=== PATIENT | male | born 1960 | race Caucasian/White ===

== ENCOUNTER → 2020-02-08 | Outpatient (CLI) | payer BC, SELFPAY | END | disposition home or self-care (01) | PROVIDERS: PCP Family Medicine; Visit Provider Family Medicine Hospice and Palliative Medicine | DX: Z11.59 Encounter for screening for other viral diseases (principal) | CPT/HCPCS: 87635; 94799; U0003 ==

== ENCOUNTER → 2020-03-29 10:50 | Outpatient (CLI) | payer BC, SELFPAY ==
[2020-03-29 12:59] LABS: PSA,Total - Annual Screen 0.29 ng/mL (0.00-4.00)
== END ==
PROVIDERS: PCP Family Medicine; Visit Provider Family Medicine
DX: Z12.5 Encounter for screening for malignant neoplasm of prostate (principal)
CPT/HCPCS: 36415; 84153; G0103

== ENCOUNTER → 2022-07-03 | Outpatient (CLI) | payer OTHER, SELFPAY ==
[2022-07-03 12:41] LABS: AST(SGOT) 31 U/L (15-37); Alanine Aminotransfer ALT/SGPT 62 U/L (16-61); Albumin, Serum 3.9 g/dL (3.2-5.0); Alkaline Phosphatase 59 U/L (45-117); Anion Gap 6 (5-15); BUN 14 mg/dL (7-18); BUN/Creat Ratio 16.1 RATIO (10-20); Calcium,Total 9.5 mg/dL (8.5-10.1); Chloride 98 mmol/L (98-107); Cholesterol 147 mg/dL (200); Creatinine, Serum 0.87 mg/dL (0.70-1.30); EST Glomerular Filtration Rate 94 mL/min (>60); Est Glom Filt Rate - Afr Amer 114 mL/min (>60); Glucose 106 mg/dL (74-106); High Density Lipoprotein 51 mg/dL; PSA,Total - Annual Screen 0.36 ng/mL (0.00-4.00); Potassium 3.8 mmol/L (3.5-5.1); Protein, Total 7.9 g/dL (6.4-8.2); Sodium Level 136 mmol/L (136-145); Triglycerides 145 mg/dL; Very Low Density Lipoprotein 29 mg/dL (5-40)
[2022-07-03 12:44] LABS: Absolute Lymphocyte Count 1.88 X10^3/uL (0.83-4.51); Absolute Neutrophil Count 3.1 X10^3/uL (2.0-7.7); Basophil# 0.05 X10^3/uL; Basophil% 0.9 % (0-1); Eosinophil# 0.11 X10^3/uL; Hemoglobin 16.8 g/dL (13.0-16.5); Lymphocyte # 1.88 X10^3/ul (0.83-4.51); Lymphocyte % 33.5 % (19-41); Mean Corp Hgb Conc 36.5 g/dL (32-36); Mean Corpuscular Volume 93.1 fL (80-94); Mean Platelet Vol. 10.8 fl (6.2-12.0); Monocyte# 0.51 X10^3/uL; Monocyte% 9.1 % (0-10); NRBC Flagged by Analyzer 0 % (0-5); Neutrophil # 3.06 X10^3/uL (2.7-7.7); Neutrophil % 54.3 % (47-70); Platelet Count 203 K/mm3 (150-450); RBC Distribution Width SD 41.3 fl (35.1-43.9); Red Blood Count 4.94 M/mm3 (4.6-6.2); White Blood Count 5.6 K/mm3 (4.4-11.0)
[2022-07-03 14:53] LABS: Hemoglobin A1c 5.8 % (3.8-5.6)
== END | disposition home or self-care (01) ==
PROVIDERS: PCP Family Medicine; Visit Provider Family Medicine
DX: Z00.00 Encounter for general adult medical examination without abnormal findings (principal); Z12.5 Encounter for screening for malignant neoplasm of prostate
CPT/HCPCS: 36415; 80053; 80061; 83036; 84153; 85025; G0103

== ENCOUNTER 2022-09-09 06:57 | Day surgery (SDC) | payer OTHER, SELFPAY ==
[2022-09-09] VITALS (9 sets, daily range): BP systolic 132–151; BP diastolic 59–81; PULSE 59–71; RESP 16; TEMP 36.1–36.3; O2SAT 94–97; BMI 26.4
[2022-09-09] MEDS: Lactated Ringers 1,000 ML 15 ML IV ×3 (07:32→11:43)
--- NOTE | 2022-09-09 08:19 | HP.PCM_ITS ---
History and Physical Date of Admission: 09/09/22 Intake Vital Signs ? 08/22/2312:52 Height 5 ft 11 in Weight: 191 lb 2 oz BMI 26.6 BP 150/81 H Blood Pressure Location Lt brachial Position Sitting Respiration 16 Pulse 68 Pulse SourceB Monitor Temp 97.3 F L Temp Source Temporal Pulse Oximetry (%) 98 Oxygen Delivery Method room air Intake Visit Reasons:?LEFT INGUINAL HERNIA Chief Complaint: Bilateral inguinal hernias Relief Master Required: No Is patient in pain?: No Allergies Sulfa (Sulfonamide Antibiotics) Allergy (Intermediate, Verified 08/22/22 13:53) PT UNSURE OF REACTION Medications aspirin 81 mg chewable tablet 81 mg PO DAILY 07/30/22 [History Confirmed 08/22/22] atenolol 50 mg-chlorthalidone 25 mg tablet 1 tab PO DAILY 07/30/22 [History Confirmed 08/22/22] coenzyme Q10 75 mg capsule (Ultra CoQ10) 75 mg PO DAILY 07/30/22 [History Confirmed 08/22/22] docusate sodium 100 mg tablet (Stool Softener) 100 mg PO DAILY 07/30/22 [History Confirmed 08/22/22] multivitamin 1 tab PO DAILY 07/30/22 [History Confirmed 08/22/22] omega 9-keh-cop-fish oil 300 mg-1,000 mg capsule (Fish Oil) 1 cap PO DAILY 07/30/22 [History Confirmed 08/22/22] psyllium husk 0.52 gram capsule (Natural Fiber Laxative) 0.52 g PO DAILY 07/30/22 [History Confirmed 08/22/22] simvastatin 40 mg tablet (Zocor) 40 mg PO DAILY 07/30/22 [History Confirmed 08/22/22] tamsulosin 0.4 mg capsule (Flomax) 0.4 mg PO QHS 2 months #60 caps 07/30/22 [Rx Confirmed 08/22/22] PFSH Family History? Brother Diabetes Heart disease HypertensionFather Hypertension CVA (cerebral vascular accident)Mother Hypertension HPI HPI HPI: Patient was seen by my partner and he discussed left inguinal hernia repair with him but then he needed to take Aleve and the patient would like surgery sooner.? Patient has been complaining of left inguinal hernia pain that has been there for a while.? Patient says that he is not having any pain or discomfort on the right but that Dr. Maurice was able to palpate an inguinal hernia on the right. ROS General General: No weight change, appetite, fatigue, colon cancer, breast cancer or weakness HEENT HEENT: No difficulty swallowing, eye injury, eye surgery, swollen glands or hoarseness Endo Endocrine: No thyroid disease, diabetes mellitus, thyroid cancer, Hair loss, heat intolerance or cold intolerance Skin Skin: No rash or changing moles Musc Musculoskeletal: Yes arthritis; No back problems, rheumatoid arthritis, gout or joint pain Cardio Cardiovascular: Yes high blood pressure; No murmur, pacemaker, heart disease, atrial fibrillation, heart attack, heart stent, palpitations, shortness of breat with exertion or chest pain Psych Psychiatric: No depression, anxiety or hearing voices Resp Respiratory: No shortness of breath, No sleep apnea, No cough, No COPD, No asthma, No emphysema and No wheezing Gastro Gastrointestinal: No abdominal pain, No nausea or vomiting, No diarrhea, No constipation, No blood in stool, No acid reflux, Yes hemorrhoids, No ulcers, No gallbladder problem and No black,tarry stools José Hematologic: No blood thinners, No blood disorders, No bleeding, No anemia and No blood clots Neuro Neurologic: No system reviewed and no additional complaints, except as documented, No as per HPI, No abnormal gait, No abnormal hearing, No abnormal movements, No abnormal speech, No behavioral changes, No burning sensations, No confusion, No convulsions, No disequilibrium, No dizziness, No localized weakness, No frequent falls, No headache(s), No lack of coordination, No loss of vision, No memory loss, No numbness, No other visual disturbances, No radicular pain, No restless legs, No sensory deficit, No syncope, No tingling, No tremor(s), No weakness and No other Exam Const General: cooperative Orientation: alert and oriented x3 HENVA Head: normal to inspection Neck Neck: normal visual inspection and full ROM Chest Chest palpation & inspection: normal inspection of the chest Resp Effort & Inspection: normal respiratory effort Auscultation: clear to auscultation bilaterally Cardio Rate: regular rate Rhythm: regular rhythm GI Inspection: non-distended Palpation: soft, hernia indirect inguinal on the left and nontender Skin General: no rashes or lesions noted Neuro General: patient alert and patient oriented x3 Extrem General: full ROM Psych Appearance: grossly normal Mental Status: mental status grossly normal Assessment and Plan Assessment and Plan (1) Inguinal hernia of left side without obstruction or gangrene: ?Status:?Acute ?Plan: Patient has a large but reducible left inguinal hernia.? I discussed robotic assisted laparoscopic inguinal hernia repair with mesh.? I discussed fixing the contralateral side if there is a hernia present on the right.? I discussed mesh placement and the risks of the procedure including but not limited to bleeding, infection, injury to other organs such as the blood supply to the testicle, bowel, bladder or ureter.? Patient understands all the risks and is when to proceed with hernia repair. Vivek Bustos MD Pager: [facility] [address] [place] [address] [address] [place] [address] Office: I have examined the patient and the H&P has been reviewed. There are no clinical changes since date of exam.
[2022-09-09] MEDS: Cefazolin 2 GM in 0.9% Normal Saline 100 ML IV (08:43)
[2022-09-09] MEDS: Bupivacaine 0.5% PF 10 ML VIAL (09:45)
--- NOTE | 2022-09-09 10:01 | PCM.OPRPT ---
Report of Operation Date of Procedure: 09/09/22 Pre-Operative Diagnosis: Left inguinal hernia Post-Operative Diagnosis: Bilateral inguinal hernias Surgery/Procedure Performed:: Robotic assisted laparoscopic bilateral inguinal hernia repair with mesh Description of Procedure: Patient was brought back the operating room and general anesthesia was induced. The abdomen was prepped and draped in the usual sterile fashion. A midline incision was made superior to the umbilicus and deepened to the fascia which was elevated and the Veress needle was placed into the abdomen and a drop test was performed. The abdomen was then insufflated 15 mmHg. The Veress needle was removed and a port was placed into the abdomen and then the camera placed into the abdomen. There were no injuries from entry. The patient was placed in Trendelenburg position and appeared to have bilateral direct inguinal hernias. Under direct visualization an 8 mm port was placed in the right lateral sidewall as well as left abdomen sidewall. The robot was then docked. The left side was approached first. The peritoneum was incised sharply using electrocautery scissors and then dissection was carried inferiorly until the hernia sac was reduced. A 12 x 15 cm ProGrip mesh was unfolded in the left groin completely covering the hernia and the indirect space. The peritoneum was reapproximated using a 3-0 V-Loc suture completely covering the mesh. Next the right side was addressed. In the same fashion the peritoneum was incised and dissection was carried inferiorly until the hernia sac was reduced. ProGrip mesh was placed in the right groin and completely unfolded. There was good overlap between the 2 pieces of mesh behind the bladder. The peritoneum on the right side was reapproximated using a running 3-0V lock suture completely covering the mesh. The robot was undocked and the abdomen was allowed to desufflate. The scrotum was checked and contain both testicles. Next the ports were removed and the incisions were injected with local anesthetic and closed with interrupted 4-0 Monocryl suture and Steri-Strips and bandages were applied. Patient was then awoken and taken to PACU in stable condition. Grafts/Implants Used: ProGrip mesh bilaterally Admit VTE Documentation VTE Mechan Device Prophylaxis: SCD's
--- NOTE | 2022-09-09 10:04 | DCINST_ITS ---
Discharge Instructions Procedure Hernia Diet Discharge Diet: Light diet - advance as tolerated Activity Discharge Activity: May Not Drive (for 2-3 days or while taking narcotic pain meds.) and May Shower (with the bandage in place 1-2 days after surgery.) Lifting Restrictions: 20 pounds for 4 weeks. Additional Activity Instructions:: Climbing stairs is fine, walking is encouraged. Sitting in bed may be uncomfortable. Sitting up using your lateral muscles (sitting up sideways) is usually more comfortable. Do not drive, work heavy equipment of sign legal documents for 24 hours. If your hernia repair was an inguinal repair, you may have scrotal swelling, an ice pack and/or athletic support can provide more comfort. Pain medications may cause nausea, you should typically eat light foods as you take your pain medications. Pain medications may also cause constipation. If you have difficulty with this, discuss with your doctor. Dressing / Incision Call your doctor if your incision/area has: Continuous Slow Oozing, Sudden Increased Bleeding, Increased Pain/ Swelling, Increased Redness and Foul Smelling Discharge Call your doctor if you observe: Fever of 101 or Higher Suture Line Care: Avoid Pulling/Pushing and Avoid Pinching/Bending Remove Dressing in: 2 days (Remove clear bandages in 2 days, remove Steri-Strips in 7 to 10 days.) Follow Up Care Please Follow Up With: Vivek Bustos MD When: Please call to schedule 2 week follow up appointment. [phone] Test Results: Test results from this visit will be discussed in further detail at your follow- up appointment, if applicable. Discharge Plan Admission Attending Provider: Vivek Bustos Primary Care Provider: Surinder Vasquez Instructions Additional Instructions / Restrictions: Ibuprofen and Tylenol for pain, oxycodone for breakthrough. Discharge Orders/Prescriptions Prescriptions: New oxycodone 5 mg tablet 5 - 10 mg PO Q6H PRN (Reason: pain) 5 Days Qty: 15 0RF No Action aspirin 81 mg tablet,chewable 81 mg PO DAILY atenolol-chlorthalidone 50-25 mg tablet 1 tab PO DAILY omega 4-eae-jvq-fish oil [Fish Oil] 300-1,000 mg capsule 1 cap PO DAILY Ultra CoQ10 75 mg capsule 100 mg PO DAILY psyllium husk [Natural Fiber Laxative] 0.52 gram capsule 0.52 g PO DAILY multivitamin Tablet 1 tab PO DAILY docusate sodium [Stool Softener] 100 mg tablet 100 mg PO DAILY tamsulosin [Flomax] 0.4 mg capsule 0.4 mg PO QHS 60 Days Qty: 60 0RF rosuvastatin [Crestor] 40 mg Tablet 40 mg PO DAILY cholecalciferol (vitamin D3) [Vitamin D3] 25 mcg (1,000 unit) Tablet,Chewable 50 mcg PO DAILY Glucosamine Chondroitin 550-30-1 mg Capsule 1 cap PO DAILY Referrals / Follow Up: Surinder Vasquez, [Primary Care Provider] - Disposition Disposition (needs filled in before D/C Order can be placed): Home, Self Care
[2022-09-09] MEDS: Acetaminophen 325 MG Tablet 650 MG PO (11:42)
== END 2022-09-09 12:45 | disposition home or self-care (01) ==
LOC: SDC 06:59 → AC 07:00
PROVIDERS: PCP Family Medicine; Referring Provider Surgery; Visit Provider Surgery
PROC: (CPT 49650; principal; 2022-09-09 08:40)
DX: K40.20 Bilateral inguinal hernia, without obstruction or gangrene, not specified as recurrent (principal); I10 Essential (primary) hypertension; K76.0 Fatty (change of) liver, not elsewhere classified; E78.00 Pure hypercholesterolemia, unspecified; Z87.19 Personal history of other diseases of the digestive system; Z79.899 Other long term (current) drug therapy
CPT/HCPCS: 49650; S2900; 00840; 93005; J7120; J2405

== ENCOUNTER → 2023-07-04 | Outpatient (CLI) | payer OTHER, SELFPAY ==
[2023-07-04 10:17] LABS: Absolute Lymphocyte Count 1.96 X10^3/uL (0.83-4.51); Absolute Neutrophil Count 2.2 X10^3/uL (2.0-7.7); Basophil# 0.06 X10^3/uL; Basophil% 1.3 % (0-1); Eosinophils% 2.1 % (0-5); Hematocrit 46.5 % (40-54); Hemoglobin 16.1 g/dL (13.0-16.5); Lymphocyte # 1.96 X10^3/ul (0.83-4.51); Lymphocyte % 40.8 % (19-41); Mean Corp Hgb Conc 34.6 g/dL (32-36); Mean Corpuscular Hgb 32.8 pg (27.0-32.0); Mean Corpuscular Volume 94.7 fL (80-94); Mean Platelet Vol. 10.7 fl (6.2-12.0); Monocyte# 0.45 X10^3/uL; Monocyte% 9.4 % (0-10); NRBC Flagged by Analyzer 0 % (0-5); Neutrophil # 2.22 X10^3/uL (2.7-7.7); Neutrophil % 46.2 % (47-70); Platelet Count 187 K/mm3 (150-450); RBC Distribution Width CV 11.9 % (11.6-14.6); Red Blood Count 4.91 M/mm3 (4.6-6.2); White Blood Count 4.8 K/mm3 (4.4-11.0)
[2023-07-04 10:31] LABS: AST(SGOT) 44 U/L (15-37); Alanine Aminotransfer ALT/SGPT 62 U/L (16-61); Albumin, Serum 3.8 g/dL (3.2-5.0); Alkaline Phosphatase 61 U/L (45-117); Anion Gap 9 (5-15); BUN 13 mg/dL (7-18); Calcium,Total 9.1 mg/dL (8.5-10.1); Chloride 101 mmol/L (98-107); Cholesterol 137 mg/dL (200); Creatinine, Serum 0.82 mg/dL (0.70-1.30); EST Glomerular Filtration Rate 101 mL/min (>60); Est Glom Filt Rate - Afr Amer 122 mL/min (>60); Globulin 3.8 g/dL (2.2-4.2); Glucose 106 mg/dL (74-106); High Density Lipoprotein 49 mg/dL; PSA,Total - Annual Screen 0.49 ng/mL (0.00-4.00); Potassium 3.5 mmol/L (3.5-5.1); Protein, Total 7.6 g/dL (6.4-8.2); Sodium Level 138 mmol/L (136-145); Triglycerides 130 mg/dL; Very Low Density Lipoprotein 26 mg/dL (5-40)
== END | disposition home or self-care (01) ==
LOC: MTLAB 07:50
PROVIDERS: PCP Family Medicine; Referring Provider Nurse Practitioner Family; Visit Provider Nurse Practitioner Family
DX: Z12.5 Encounter for screening for malignant neoplasm of prostate (principal); I10 Essential (primary) hypertension; E78.5 Hyperlipidemia, unspecified
CPT/HCPCS: 36415; 80053; 80061; 84153; 85025; G0103

== ENCOUNTER → 2024-08-11 | Outpatient (CLI) | payer MEDICARE, SELFPAY ==
[2024-08-11 15:21] LABS: Absolute Lymphocyte Count 1.89 X10^3/uL (0.83-4.51); Absolute Neutrophil Count 2.4 X10^3/uL (2.0-7.7); Basophil# 0.04 X10^3/uL; Basophil% 0.8 % (0-1); Eosinophil# 0.12 X10^3/uL; Eosinophils% 2.4 % (0-5); Hematocrit 44.7 % (40-54); Hemoglobin 15.6 g/dL (13.0-16.5); Lymphocyte # 1.89 X10^3/ul (0.83-4.51); Lymphocyte % 38.3 % (19-41); Mean Corp Hgb Conc 34.9 g/dL (32-36); Mean Corpuscular Hgb 32.8 pg (27.0-32.0); Mean Corpuscular Volume 93.9 fL (80-94); Monocyte# 0.42 X10^3/uL; Monocyte% 8.5 % (0-10); NRBC Flagged by Analyzer 0 % (0-5); Neutrophil # 2.44 X10^3/uL (2.7-7.7); Neutrophil % 49.6 % (47-70); Platelet Count 176 K/mm3 (150-450); RBC Distribution Width SD 41.6 fl (35.1-43.9); Red Blood Count 4.76 M/mm3 (4.6-6.2); White Blood Count 4.9 K/mm3 (4.4-11.0)
[2024-08-11 15:41] LABS: AST(SGOT) 42 U/L (15-37); Alanine Aminotransfer ALT/SGPT 60 U/L (16-61); Albumin, Serum 3.9 g/dL (3.2-5.0); Alkaline Phosphatase 66 U/L (45-117); Anion Gap 11 (5-15); BUN 12 mg/dL (7-18); Calcium,Total 9.3 mg/dL (8.5-10.1); Chloride 100 mmol/L (98-107); Cholesterol 138 mg/dL (200); EST Glomerular Filtration Rate 119 mL/min (>60); Est Glom Filt Rate - Afr Amer 144 mL/min (>60); Globulin 3.9 g/dL (2.2-4.2); Glucose 108 mg/dL (74-106); High Density Lipoprotein 49 mg/dL; PSA,Total - Annual Screen 0.31 ng/mL (0.00-4.00); Potassium 3.7 mmol/L (3.5-5.1); Protein, Total 7.8 g/dL (6.4-8.2); Sodium Level 137 mmol/L (136-145); Triglycerides 163 mg/dL; Very Low Density Lipoprotein 33 mg/dL (5-40)
[2024-08-11 16:39] LABS: Vitamin D,25 Hydroxy 93.7 ng/mL
== END | disposition home or self-care (01) ==
LOC: BFHLAB 11:18
PROVIDERS: PCP Nurse Practitioner Family; Visit Provider Nurse Practitioner Family
DX: Z00.01 Encounter for general adult medical examination with abnormal findings (principal); E78.5 Hyperlipidemia, unspecified; E55.9 Vitamin D deficiency, unspecified; Z12.5 Encounter for screening for malignant neoplasm of prostate
CPT/HCPCS: 36415; 80053; 80061; 82306; 84153; 85025; G0103